=== PATIENT | female | born 1960 | race Caucasian/White ===

== ENCOUNTER 2018-03-14 19:20 | Emergency (ER) | payer BC, OTHER ==
[~2018-03-14] VITALS: Ht 160 cm; Wt 68.5 kg
[2018-03-14] MEDS ORDERED: METFORMIN HCL500 MG (19:40)
[2018-03-14] MEDS ORDERED: SIMBASTATIN (19:41)
[2018-03-15] MEDS ORDERED: CEFUROXIME500 MG PO (01:42)
[2018-03-15] MEDS ORDERED: KETO10TA2 PO (01:42)
== END 2018-03-15 02:07 | disposition home or self-care (01) ==
LOC: ER 19:20
DX: N20.0 Calculus of kidney (principal); N39.0 Urinary tract infection, site not specified; R10.31 Right lower quadrant pain